=== PATIENT | male | born 1970 | race African-American/Black ===

== ENCOUNTER 2016-10-09 21:45 | Emergency (ER) | payer MEDICAID ==
[~2016-10-09] VITALS: Ht 182.9 cm; Wt 72.6 kg
[~2016-10-09 21:45] MED LIST: ABILIFY30 MG ORAL; DOXYCYCLINE MO100 MG ORAL; GABAPENTIN600 MG ORAL; NKM; NORCO 5-325 TA1 EACH ORAL; POLYTRIM OP SOL10 ML OPHTHALM; UNOBMED
[2016-10-09] MEDS ORDERED: LORazepam Inj 2mg/ml 1ml IV ONE (22:15)
[2016-10-09] MEDS ORDERED: Haloperidol 5mg/ml Inj IM ONE (22:15)
[2016-10-09 22:48] LABS: BASOPHILS % (AUTO) 1.3 % (0.0-2.0); EOSINOPHILS % (AUTO) 0.5 % (0.0-3.0); LYMPHOCYTES % (AUTO) 32.4 % (20.0-45.0); MEAN CORPUSCULAR HEMOGLOBIN 33.3 PG (27.0-31.0); MEAN CORPUSCULAR HGB CONC 33.7 G/DL (32.0-36.0); MEAN CORPUSCULAR VOLUME 99 FL (80-99); MEAN PLATELET VOLUME 7.5 FL (6.5-10.1); MONOCYTES % (AUTO) 11.2 % (1.0-10.0); NEUTROPHILS % (AUTO) 54.5 % (45.0-75.0); PLATELET COUNT 188 K/UL (150-450); RED BLOOD COUNT 4.45 M/UL (4.70-6.10); RED CELL DISTRIBUTION WIDTH 11.9 % (11.6-14.8); WHITE BLOOD COUNT 4.1 K/UL (4.8-10.8)
[2016-10-09 23:07] LABS: ACETAMINOPHEN < 10 ug/mL (10-30); ALANINE AMINOTRANSFERASE 11 U/L (3-41); ALBUMIN/GLOBULIN RATIO 1.7 (1.0-2.7); ALCOHOL 111 mg/dL; ANION GAP 18 (5-15); ASPARTATE AMINO TRANSFERASE 19 U/L (5-40); CALCIUM 9.1 mg/dL (8.6-10.2); CARBON DIOXIDE 25 mEQ/L (20-30); CHLORIDE 102 mEQ/L (98-107); GLOMERULAR FILTRATION RATE > 60 mL/min (>60); HEMOLYSIS 7; POTASSIUM 3.7 mEQ/L (3.4-4.9); SODIUM 145 mEQ/L (135-145); TOTAL PROTEIN 7.3 g/dL (6.6-8.7)
[2016-10-09 23:11] VITALS: BP 96/63
--- NOTE | 2016-10-09 23:45 | Emergency Room Report ---
History of Present Illness General Chief Complaint: Behavioral Complaint Source: EMS Present Illness HPI Patient presents by paramedics for reports of agitation and bizarre behavior Patient was found knocking on doors And acting in a bizarre manner Upon arrival the patient is cursing at the staff does not answer questions appropriately Patient reports that he is here because of his There was no reports of vomiting or diarrhea patient has a history of reported bipolar from paramedics Otherwise the history of present illness is significantly limited Allergies: Coded Allergies: No Known Allergies (Unverified , 09/04/13) Patient History Limited by: medical condition Past Medical History: see triage record Pertinent Family History: unable to obtain Reviewed Nursing Documentation: PMH: Agreed, PSxH: Agreed Nursing Documentation-PMH Past Medical History: No History, Except For History Of Psychiatric Problem: Yes - Bipolar Review of Systems All Other Systems: limited - Other than the ones mentioned in the history of present illness all others are reviewed however they do stay limited due to the patient's mental status Physical Exam Vital Signs Date Time Temp Pulse Resp B/P (MAP) Pulse Ox O2 Delivery O2 Flow Rate FiO2 10/09/16 21:37 98.2 120 32 152/86 98 Room Air Sp02 EP Interpretation: reviewed, normal General Appearance: moderate distress - Patient agitated, cursing at staff Head: normocephalic, atraumatic Eyes: bilateral eye PERRL, bilateral eye EOMI ENT: normal pharynx, no angioedema Neck: supple Respiratory: lungs clear, normal breath sounds Cardiovascular #1: regular rate, rhythm Gastrointestinal: non tender, soft Musculoskeletal: other - Patient does not follow commands however as the patient is agitated and moving around there is no obvious focal deficit Neurologic: responsive Psychiatric: other - agitated Skin: no rash, warm/dry Lymphatic: no adenopathy Medical Decision Making ER Course Given the patient's presentation Patient required initial sedation chemically At this time blood work is obtained urine drug screen is still pending patient will require further psychiatric evaluation by a psychiatrist And will have final disposition Labs Test 10/09/16 22:30 White Blood Count 4.1 K/UL (4.8-10.8) Red Blood Count 4.45 M/UL (4.70-6.10) Hemoglobin 14.8 G/DL (14.2-18.0) Hematocrit 44.0 % (42.0-52.0) Mean Corpuscular Volume 99 FL (80-99) Mean Corpuscular Hemoglobin 33.3 PG (27.0-31.0) Mean Corpuscular Hemoglobin Concent 33.7 G/DL (32.0-36.0) Red Cell Distribution Width 11.9 % (11.6-14.8) Platelet Count 188 K/UL (150-450) Mean Platelet Volume 7.5 FL (6.5-10.1) Neutrophils (%) (Auto) 54.5 % (45.0-75.0) Lymphocytes (%) (Auto) 32.4 % (20.0-45.0) Monocytes (%) (Auto) 11.2 % (1.0-10.0) Eosinophils (%) (Auto) 0.5 % (0.0-3.0) Basophils (%) (Auto) 1.3 % (0.0-2.0) Sodium Level 145 mEQ/L (135-145) Potassium Level 3.7 mEQ/L (3.4-4.9) Chloride Level 102 mEQ/L (98-107) Carbon Dioxide Level 25 mEQ/L (20-30) Anion Gap 18 (5-15) Blood Urea Nitrogen 11 mg/dL (7-23) Creatinine 1.0 mg/dL (0.7-1.2) Estimat Glomerular Filtration Rate > 60 mL/min (>60) Glucose Level 114 mg/dL (74-106) Calcium Level 9.1 mg/dL (8.6-10.2) Total Bilirubin 0.7 mg/dL (0.0-1.2) Aspartate Amino Transf (AST/SGOT) 19 U/L (5-40) Alanine Aminotransferase (ALT/SGPT) 11 U/L (3-41) Alkaline Phosphatase 69 U/L (40-129) Total Protein 7.3 g/dL (6.6-8.7) Albumin 4.6 g/dL (3.5-5.2) Globulin 2.7 g/dL Albumin/Globulin Ratio 1.7 (1.0-2.7) Salicylates Level < 1 mg/dL (10-30) Acetaminophen Level < 10 ug/mL (10-30) Serum Alcohol 111 mg/dL Last Vital Signs Date Time Temp Pulse Resp B/P (MAP) Pulse Ox O2 Delivery O2 Flow Rate FiO2 8/24/17 23:11 90 22 96/63 95 Room Air 10/09/16 21:37 98.2 Status: improved Signed Out To: Dr snow 6:30 LINDSEY Anderson D.O. Oct 09, 2016 23:45
[2016-10-10 01:19] VITALS: BP 117/65
[2016-10-10 03:20] VITALS: BP 120/64
[2016-10-10 05:24] VITALS: BP 110/73
[2016-10-10 08:17] VITALS: BP 108/69
--- NOTE | 2016-10-10 11:45 | Consultation ---
History of Present Illness General Chief Complaint: Behavioral Complaint Present Illness HPI 45 yo male with substance use d/o/ he is on parole for selling drugs. He never been to a psych [facility] the pt is in therapy but she is not on meds. the pt denied sa in past. the pt is on 5150 in the context of being intoxicated and upset at girlfriend. the pt has no medical problems. the pt has been observed since last night. calm down, he has a meeting with his audit officer. the pt relapsed recently. the pt is calm and cooperative during the eval. could not recall much from last night. the pt doesn't endorse si/hi, manic/depressive/psychotic sxs. the pt is staying at a hotel, he is working and has an income. the pt is motivated to stop using. Allergies: Coded Allergies: No Known Allergies (Unverified , 09/04/13) Medication History Scheduled Doxycycline Monohydrate* (Doxycycline Monohydrate*), 100 MG ORAL Q12H No Known Medications* (NKM - No Known Medications*), 0 ., (Reported) Miscellaneous Medications Unable to Obtain Medications (Unable To Obtain Meds), (Reported) Patient History History Provided By: Patient, Medical Record, PMD Healthcare decision maker Resuscitation status Advanced Directive on File Past Medical/Surgical History Past Medical/Surgical History: (1) Eye pain (2) Corneal abrasion, left (3) Eye problem Review of Systems Psychiatric: Reports: emotional problems Physical Exam General Appearance: no apparent distress, alert, thin Neurologic: alert, oriented x 3, responsive, normal mood/affect Last 24 Hour Vital Signs Date Time Temp Pulse Resp B/P (MAP) Pulse Ox O2 Delivery O2 Flow Rate FiO2 10/10/16 08:17 64 16 108/69 99 Room Air 10/10/16 05:24 70 14 110/73 98 Room Air 10/10/16 03:20 69 13 120/64 97 Room Air 10/10/16 01:19 77 15 117/65 99 Room Air 10/09/16 23:11 90 22 96/63 95 Room Air 10/09/16 21:37 98.2 120 32 152/86 98 Room Air Intake and Output 10/10/16 10/11/16 19:00 07:00 Intake Total 700 ml Output Total 200 ml Balance 500 ml Intake Oral 700 ml Output Urine Total 200 ml Laboratory Tests Test 10/09/16 22:30 10/10/16 07:40 White Blood Count 4.1 K/UL (4.8-10.8) L Red Blood Count 4.45 M/UL (4.70-6.10) L Hemoglobin 14.8 G/DL (14.2-18.0) Hematocrit 44.0 % (42.0-52.0) Mean Corpuscular Volume 99 FL (80-99) Mean Corpuscular Hemoglobin 33.3 PG (27.0-31.0) H Mean Corpuscular Hemoglobin Concent 33.7 G/DL (32.0-36.0) Red Cell Distribution Width 11.9 % (11.6-14.8) Platelet Count 188 K/UL (150-450) Mean Platelet Volume 7.5 FL (6.5-10.1) Neutrophils (%) (Auto) 54.5 % (45.0-75.0) Lymphocytes (%) (Auto) 32.4 % (20.0-45.0) Monocytes (%) (Auto) 11.2 % (1.0-10.0) H Eosinophils (%) (Auto) 0.5 % (0.0-3.0) Basophils (%) (Auto) 1.3 % (0.0-2.0) Sodium Level 145 mEQ/L (135-145) Potassium Level 3.7 mEQ/L (3.4-4.9) Chloride Level 102 mEQ/L (98-107) Carbon Dioxide Level 25 mEQ/L (20-30) Anion Gap 18 (5-15) H Blood Urea Nitrogen 11 mg/dL (7-23) Creatinine 1.0 mg/dL (0.7-1.2) Estimat Glomerular Filtration Rate > 60 mL/min (>60) Glucose Level 114 mg/dL (74-106) H Calcium Level 9.1 mg/dL (8.6-10.2) Total Bilirubin 0.7 mg/dL (0.0-1.2) Aspartate Amino Transf (AST/SGOT) 19 U/L (5-40) Alanine Aminotransferase (ALT/SGPT) 11 U/L (3-41) Alkaline Phosphatase 69 U/L (40-129) Total Protein 7.3 g/dL (6.6-8.7) Albumin 4.6 g/dL (3.5-5.2) Globulin 2.7 g/dL Albumin/Globulin Ratio 1.7 (1.0-2.7) Salicylates Level < 1 mg/dL (10-30) L Acetaminophen Level < 10 ug/mL (10-30) L Serum Alcohol 111 mg/dL Urine Opiates Screen Negative (NEGATIVE) Urine Barbiturates Screen Negative (NEGATIVE) Phencyclidine (PCP) Screen Negative (NEGATIVE) Urine Amphetamines Screen Positive (NEGATIVE) H Urine Benzodiazepines Screen Positive (NEGATIVE) H Urine Cocaine Screen Negative (NEGATIVE) Urine Marijuana (THC) Screen Positive (NEGATIVE) H Height (Feet): 6 Weight (Pounds): 160 Assessment/Plan Status: doing well, stable Assessment/Plan poly substance dependence -lift 5150 -pt to follow at portal -the pt is not at imminent dts/dto -the pt has low risk factors -does not meet the criteria for iplo Micky Mcdowell M.D. Oct 10, 2016 11:45
[2016-10-10 11:50] VITALS: BP_SYST 108; BP_SYST 132; BP_DIAS 69; BP_DIAS 98
== END 2016-10-10 11:50 | disposition home or self-care (01) ==
LOC: EDBD 21:45 → EMR 22:05 → CANBEDREQ 10-10 06:02 → EMR 10-10 11:50
DX: R45.1 Restlessness and agitation (principal); F31.9 Bipolar disorder, unspecified; F19.20 Other psychoactive substance dependence, uncomplicated
CPT/HCPCS: 36415; 80053; 80300; 80329; 85025; 96360; 96361; 96372; 96374; 99284; J1630

== ENCOUNTER 2016-12-24 04:20 | Emergency (ER) | payer MEDICAID, OTHER ==
[~2016-12-24] VITALS: Ht 182.9 cm; Wt 81.6 kg
[2016-12-24 04:29] VITALS: BP 134/86
[2016-12-24] MEDS ORDERED: DOXYCYCLINE MO100 MG ORAL (04:42)
[2016-12-24] MEDS ORDERED: Lidocaine 1% MPF 10mg/ml 5ml INJ ONE (04:45)
[2016-12-24] MEDS ORDERED: Azithromycin 250mg tab ORAL ONE (04:45)
[2016-12-24 04:48] LABS: BILIRUBIN, URINE 1+ (NEGATIVE); GLUCOSE, URINE (UA) NEGATIVE (NEGATIVE); KETONES,URINE 1+ (NEGATIVE); LEUKOCYTE ESTERASE ,URINE 3+ (NEGATIVE); NITRITE,URINE NEGATIVE (NEGATIVE); PH,URINE 6 (4.5-8.0); PROTEIN,URINE 2+ (NEGATIVE); UROBILINOGEN,URINE 4 MG/DL (0.0-1.0)
--- NOTE | 2016-12-24 04:48 | Emergency Room Report ---
History of Present Illness General Chief Complaint: Male Urogenital Problems Source: Patient Present Illness HPI 45YOM with 2 days intermittent painless penile white discharge occasional hurts with urination Recent unprotected anal and vaginal insertion sex No barrier protection Was tx for gonorrhea 2 months ago at [facility] Was tx here empirically for G&C Dec 2015 as well No other STD testing was undertaken by patient recently Allergies: Coded Allergies: No Known Allergies (Unverified , 09/04/13) Patient History Past Medical History: none Past Surgical History: none Pertinent Family History: none Social History: Denies: smoking, alcohol use, drug use Immunizations: UTD Reviewed Nursing Documentation: PMH: Agreed, PSxH: Agreed Nursing Documentation-PMH Past Medical History: No Stated History Review of Systems All Other Systems: negative except mentioned in HPI Physical Exam Vital Signs Date Time Temp Pulse Resp B/P (MAP) Pulse Ox O2 Delivery O2 Flow Rate FiO2 12/24/16 04:21 98.1 88 18 134/86 98 Room Air Sp02 EP Interpretation: reviewed, normal General Appearance: normal inspection, well appearing, no apparent distress, alert, GCS 15, non-toxic Head: normocephalic, atraumatic Eyes: bilateral eye PERRL, bilateral eye EOMI ENT: normal ENT inspection, hearing grossly normal, normal voice Neck: normal inspection, full range of motion, supple, no bony tend Respiratory: normal inspection, lungs clear, normal breath sounds, no respiratory distress, no retraction, no wheezing Cardiovascular #1: regular rate, rhythm, no edema Gastrointestinal: normal inspection, normal bowel sounds, non tender, soft, no guarding, no hernia Genitourinary: no CVA tenderness Musculoskeletal: normal inspection, back normal, normal range of motion, Laya' s Sign negative Neurologic: normal inspection, alert, responsive, speech normal Psychiatric: normal inspection, judgement/insight normal, mood/affect normal Skin: normal inspection, normal color, no rash Medical Decision Making Diagnostic Impression: Primary Impression: Abnormal urogenital findings ER Course 45YOM with penile discharge VSS. Afebrile Symptoms and HPI c/w possible STD exposure Will tx empirically with Cef/Azithro and Rx Doxy DC home Advised barrier/condom protection in the future Last Vital Signs Date Time Temp Pulse Resp B/P (MAP) Pulse Ox O2 Delivery O2 Flow Rate FiO2 12/24/16 04:29 98.1 88 18 134/86 98 Room Air Status: improved Disposition: HOME, SELF-CARE Condition: Improved Scripts Doxycycline Monohydrate* (DOXYCYCLINE MONOHYDRATE*) 100 Mg Capsule 100 MG ORAL Q12H for 7 Days, #14 CAP 0 Refills Prov: NAN RETANA M.D. 12/24/16 Referrals: [facility],REFERR[facility] (PCP) Patient Instructions: Urethritis, Adult NAN RETANA M.D. Dec 24, 2016 04:48
[2016-12-24 04:58] LABS: APPEARANCE,URINE SLIGHTLY CLOUDY; COLOR,URINE YELLOW
[2016-12-24 05:00] VITALS: BP 134/86
== END 2016-12-24 05:00 | disposition home or self-care (01) ==
LOC: EMR 04:34
DX: R36.9 Urethral discharge, unspecified (principal)
CPT/HCPCS: 81003; 87086; 96372; 99284; J0696; Q0144